=== PATIENT | female | born 1970 | race Two or more races ===

== ENCOUNTER 2019-02-09 22:01 | Emergency (ER) | payer OTHER ==
[~2019-02-09] VITALS: Ht 154.9 cm; Wt 51.3 kg
[2019-02-09 22:06] VITALS: Ht 154.9 cm; Wt 51.3 kg
[2019-02-09 22:52] VITALS: BP 129/81
== END 2019-02-09 22:52 | disposition home or self-care (01) ==
LOC: ED 22:01
DX: G51.0 Bell's palsy (principal)